=== PATIENT | male | born 1940 | race Caucasian/White ===

== ENCOUNTER 2019-07-29 20:40 | Emergency (ER) | payer MEDICARE ==
[~2019-07-29] VITALS: Ht 180.3 cm; Wt 90.7 kg
[~2019-07-29 20:40] MED LIST: AMLODIPINE BESY10 MG PO; ASPIR 8181 MG PO; BRILINTA90 MG PO; CRESTOR10 MG PO; FLOMAX0.4 MG PO; HYDROCHLOROTH12.5 M1 PO; PROSCAR 5MG TABL5 MG PO
[2019-07-29 22:14] VITALS: BP 130/66
== END 2019-07-29 22:14 | disposition home or self-care (01) ==
LOC: M.ERS 20:40
DX: S01.512A Laceration without foreign body of oral cavity, initial encounter (principal); I10 Essential (primary) hypertension; I25.10 Atherosclerotic heart disease of native coronary artery without angina pectoris; Z95.5 Presence of coronary angioplasty implant and graft; X58.XXXA Exposure to other specified factors, initial encounter; Y93.89 Activity, other specified; Y92.89 Other specified places as the place of occurrence of the external cause; Y99.8 Other external cause status